=== PATIENT | female | born 1980 | race Caucasian/White ===

== ENCOUNTER 2021-07-07 06:47 | Observation (INO) ==
[2021-07-07] MEDS ORDERED: Isovue-370 500 ML BOTTLE IVP ONE (08:19)
[2021-07-07] MEDS ORDERED: Prochlorperazine 10 MG/2 ML VIAL IVP ONE (08:22)
[2021-07-07] MEDS ORDERED: Ketorolac 30 MG/ML VIAL IVP ONE (08:22)
[2021-07-07 09:00] LABS: Basophils % 0.3 %; Eosinophils # 1.1 K/mcL (0.0-0.6); Hematocrit 36.2 % (35.3-44.9); Hemoglobin 11.1 g/dL (11.5-15.4); Immature Granulocytes % 0.3 % (0-4); Lymphocytes # 2.7 K/mcL (0.6-4.6); Lymphocytes % 26.6 %; Mean Corpuscular HGB Conc 30.7 g/dL (31.6-35.5); Mean Corpuscular Hemoglobin 28.8 pg (28.0-33.3); Mean Platelet Volume 11.9 fL (9.4-12.4); Monocytes # 0.5 K/mcL (0.0-1.3); Neutrophils # 5.7 K/mcL (1.6-8.9); Platelet Count 227 K/mcL (140-400); Red Blood Count 3.85 M/mcL (3.82-4.97); Red Cell Distribution Width 13.2 % (11.5-14.5); Segmented Neutrophils % 56.8 %
[2021-07-07 09:09] LABS: Prothrombin Time 11.5 Seconds (9.4-12.1)
[2021-07-07 09:12] LABS: Activated Partial Thrombo Time 30.8 Seconds (26.0-36.0)
[2021-07-07 09:30] LABS: Alanine Aminotransferase 20 Units/L (7-52); Albumin 3.4 g/dL (3.5-5.7); Albumin/Globulin Ratio 1.1 (1.1-2.2); Alkaline Phosphatase 66 Units/L (34-104); Aspartate Amino Transferase 13 Units/L (13-39); BUN/Creatinine Ratio 15 (6-26); Bilirubin,Total 0.2 mg/dL (0.3-1.0); Blood Urea Nitrogen 13 mg/dL (6-20); Calcium 8.5 mg/dL (8.6-10.3); Carbon Dioxide 28 mEq/L (23-29); Chloride 102 mEq/L (98-107); Globulin 3.2 g/dL (2.4-3.5); Glucose 369 mg/dL (70-105); Osmolality,Calculated 297 (280-300); Potassium 3.6 mEq/L (3.5-5.1); Sodium 136 mEq/L (136-145); Total Protein 6.6 g/dL (6.4-8.9); Troponin I < 0.03 ng/mL (< 0.04); eGFR For African Americans > 60 (> 60); eGFR For Non-African Americans > 60 (> 60)
[2021-07-07] MEDS ORDERED: rOPINIRole 1 MG TABLET PO ONE (10:15)
[2021-07-07] MEDS ORDERED: Ondansetron 4 MG/2 ML VIAL IVP PRN (11:07)
[2021-07-07] MEDS ORDERED: Acetaminophen 325 MG TABLET PO PRN (11:07)
[2021-07-07] MEDS ORDERED: D5% in Water 1,000 ML IVC PRN (11:07)
[2021-07-07] MEDS ORDERED: *HR* Dextrose 50 % in Water (Syg) 50 ML SYRINGE IVP PRN (11:07)
[2021-07-07] MEDS ORDERED: Dextrose Gel 15 GM/37.5 ML TUBE PO PRN ×2 (11:07)
[2021-07-07] MEDS ORDERED: Naloxone 0.4 MG/ML INJ IVP PRN (11:07)
[2021-07-07] MEDS ORDERED: Ibuprofen 400 MG TABLET PO PRN (12:56)
[2021-07-07] MEDS ORDERED: Perflutren Lipid Microsphere 1.3 ML in 0.9 % Sodium Chloride 8.7 ML IVP PRN (13:35)
[2021-07-07] MEDS: Aspirin Enteric Coated 81 MG Tablet PO SCH (15:52)
[2021-07-07] MEDS: Insulin LISPRO 300 UNITS/3 ML VIAL SUBQ SCH ×2 (15:52→17:10)
[2021-07-07] MEDS: *HR* Heparin 5,000 UNIT/ML VIAL SQ SCH (17:20)
[2021-07-07] MEDS ORDERED: Insulin DETEMIR 100 UNIT/ML X5UNITS SUBQ SCH (21:00)
[2021-07-08 01:37] LABS: Basophils % 0.3 %; Eosinophils # 0.9 K/mcL (0.0-0.6); Eosinophils % 9.3 %; Hematocrit 35.9 % (35.3-44.9); Hemoglobin 11.3 g/dL (11.5-15.4); Immature Granulocytes % 0.1 % (0-4); Lymphocytes # 3.4 K/mcL (0.6-4.6); Lymphocytes % 34.3 %; Mean Corpuscular HGB Conc 31.5 g/dL (31.6-35.5); Mean Corpuscular Hemoglobin 29.6 pg (28.0-33.3); Monocytes # 0.4 K/mcL (0.0-1.3); Neutrophils # 5.2 K/mcL (1.6-8.9); Platelet Count 225 K/mcL (140-400); Red Blood Count 3.82 M/mcL (3.82-4.97); Red Cell Distribution Width 13.2 % (11.5-14.5)
[2021-07-08 01:51] LABS: Prothrombin Time 11.6 Seconds (9.4-12.1)
[2021-07-08 01:57] LABS: Alanine Aminotransferase 18 Units/L (7-52); Albumin 3.1 g/dL (3.5-5.7); Albumin/Globulin Ratio 1.1 (1.1-2.2); Alkaline Phosphatase 61 Units/L (34-104); Aspartate Amino Transferase 16 Units/L (13-39); BUN/Creatinine Ratio 18 (6-26); Bilirubin,Total 0.2 mg/dL (0.3-1.0); Blood Urea Nitrogen 13 mg/dL (6-20); Calcium 8.1 mg/dL (8.6-10.3); Carbon Dioxide 27 mEq/L (23-29); Chloride 105 mEq/L (98-107); Chol/HDL Ratio 4.7 (0-4.9); Cholesterol 154 mg/dL (< 200); Globulin 2.9 g/dL (2.4-3.5); Glucose 142 mg/dL (70-105); HDL Cholesterol 33 mg/dL (40-59); LDL Cholesterol,Calculated 83 mg/dL (< 100); Magnesium 1.8 mg/dL (1.6-2.6); Osmolality,Calculated 291 (280-300); Potassium 3.6 mEq/L (3.5-5.1); Sodium 139 mEq/L (136-145); Triglycerides 190 mg/dL (< 150); Troponin I < 0.03 ng/mL (< 0.04); eGFR For African Americans > 60 (> 60); eGFR For Non-African Americans > 60 (> 60)
[2021-07-08 02:46] LABS: Estimated Average Glucose 189 mg/dl; Hemoglobin A1C 8.2 %
[2021-07-08 03:29] VITALS: O2SAT 97
[2021-07-08] MEDS: *HR* Heparin 5,000 UNIT/ML VIAL SQ SCH (06:01)
[2021-07-08 07:26] VITALS: BP 162/78; PULSE 66; TEMP 97.9
[2021-07-08] MEDS: Insulin LISPRO 300 UNITS/3 ML VIAL SUBQ SCH (07:58)
[2021-07-08] MEDS: Aspirin Enteric Coated 81 MG Tablet PO SCH (08:00)
[2021-07-08] MEDS ORDERED: *HR* LORazepam 1 MG TABLET PO PRN (08:28)
[2021-07-08] MEDS ORDERED: methylPREDNISolone 125 MG/2 ML VIAL IVP ONE (08:30)
[2021-07-08] MEDS ORDERED: BuPROPion XL (24 HR) 150 MG TABLET PO SCH (09:00)
[2021-07-08] MEDS ORDERED: Gabapentin 100 MG CAPSULE PO SCH (09:00)
[2021-07-08] MEDS ORDERED: *HR* SitaGLIPtin 100 MG TABLET PO SCH (09:00)
[2021-07-08] MEDS ORDERED: *HR* Metformin 500 MG TABLET PO SCH (09:00)
[2021-07-08] MEDS ORDERED: Lisinopril-HCTZ 20-12.5mg TABLET PO SCH (09:00)
[2021-07-08] MEDS ORDERED: NON-FORMULARY MEDICATION 1 EACH EACH (Pravastatin Sodium [Pravachol] 80 MG Tablet) PO SCH (21:00)
[2021-07-08] MEDS ORDERED: Gabapentin 300 MG CAPSULE PO SCH (21:00)
[2021-07-08] MEDS ORDERED: rOPINIRole 1 MG TABLET PO SCH (21:00)
[2021-07-08] MEDS ORDERED: PARoxetine 30 MG TABLET PO SCH (21:00)
== END 2021-07-08 10:58 | disposition home or self-care (01) ==
LOC: 3BNU 06:47 → EMEROOARM 06:47 → SUATTDRO 15:00 → 3BNU 15:54
PROVIDERS: ADMIT Family Medicine; ATTEND Pharmacist